=== PATIENT | female | born 1970 | race Caucasian/White ===

== ENCOUNTER 2022-10-11 15:48 | Emergency (ER) | payer OTHER, SELFPAY ==
[2022-10-11 15:50] VITALS: BP 120/78; PULSE 61; RESP 20; TEMP 36.4; O2SAT 100
[2022-10-11 16:15] LABS: Basophils Percent Auto 0.1 % (0.2-1.2); Eosinophils Absolute Auto 0.1 K/mm3 (0-0.3); Eosinophils Percent Auto 1.2 % (0-4.4); Hematocrit 44.2 % (37.0-47.0); Immature Granulocyte Absolute 0.01 K/mm3 (0.00-0.031); Immature Granulocyte Percent A 0.1 % (0-0.5); Lymphocytes Absolute Auto 2.19 K/mm3 (0.9-3.2); Mean Corpuscular HGB Conc 31.7 g/dl (32-36); Mean Corpuscular Hemoglobin 28.3 pg (26-34); Mean Corpuscular Volume 89.5 fl (80-100); Monocytes Absolute Auto 0.7 K/mm3 (0.1-0.6); Neutrophils Absolute Auto 4.8 K/mm3 (1.3-6.7); Neutrophils Percent Auto 61.6 % (45.5-73.1); Platelet Count Result 327 k/mm3 (150-375); Red Blood Count 4.94 M/mm3 (4.2-5.4); White Blood Count 7.8 K/mm3 (4.5-10.0)
[2022-10-11 16:26] LABS: Alanine Aminotransferase 34 U/L (6-35); Albumin Level 4.2 g/dL (3.5-5.1); Alkaline Phosphatase 74 U/L (38-126); Anion Gap 3 mmol/L (8-16); Aspartate Amino Transferase 44 U/L (14-36); Bilirubin,Total 0.6 mg/dL (0.2-1.3); Blood Urea Nitrogen 14 mg/dL (7-17); Calcium 8.9 mg/dL (8.4-10.2); Carbon Dioxide 31 mmol/L (22-30); Chloride 101 mmol/L (98-107); Estimated CRCL calculation 61 ml/min; Estimated Glomerular Filt Rate > 60; Glucose 106 mg/dL (65-110); Lipase 54 U/L (23-300); Potassium 3.4 mmol/L (3.4-5.0); Sodium 135 mmol/L (137-145)
[2022-10-11 16:26] LABS: Appearance Urine Clear (Clear); Bacteria Urine None Seen /hpf; Bilirubin Urine Negative (Negative); Color Urine Yellow (Yellow); Glucose Urine UA Negative (Negative); Ketones Urine Negative (Negative); Leukocyte Esterase Ur Trace LEU/UL (Negative); Nitrate Urine Negative (Negative); Non Pathogenic Casts 0-2; Protein Urine Negative (Negative); RBC Urine 0-2 /hpf (0-2); Specific Grav Ur 1.018 (1.001-1.035); Squamous Epithelial Cell Urine None seen /hpf (Few); WBC Urine 0-5 /hpf
[2022-10-11 16:30] LABS: Add Urine Microscopic? YES
--- NOTE | 2022-10-11 17:35 | ED.GENADULT ---
HPI - General Adult General Chief complaint: Nausea/Vomiting/Diarrhea Stated complaint: nausea Time Seen by Provider: 10/11/22 16:58 Source: patient Mode of arrival: ambulatory Limitations: no limitations History of Present Illness HPI narrative: This is a 52-year-old female who presents to the ED with chief complaint of nausea, vomiting, diarrhea for the past 10 days. Patient states she was diagnosed with COVID 7 days ago. Patient states that she still has a little bit of a cough but it is better than a week ago. Reports her symptoms of runny nose and congestion are improving. She is here today because she has continued nausea and vomiting whenever she tries to eat. Reports episodes of loose stools as well. Denies abdominal pain. Denies fevers, chills, productive cough, chest pain, shortness of breath. Denies any GI bleeding symptoms. Related Data Allergies Allergy/AdvReac Type Severity Reaction Status Date / Time codeine Allergy Itching Verified 10/11/22 16:04 Review of Systems Review of Systems: All systems as dictated in HPI Exam Narrative: GENERAL: Well-appearing, well-nourished, and in no acute distress. Sitting up in bed. HEAD: Normocephalic, atraumatic. EYES: PERRLA and EOMI. ENT: Nares clear, no rhinorrhea or epistaxis. Mucous membranes moist. Oropharynx without tonsillar hypertrophy exudate or other lesions. NECK: Supple. No adenopathy or masses. CHEST: No respiratory distress. Clear to auscultation. No wheezes rales or rhonchi HEART: Regular rate and rhythm. No murmur heard. Normal peripheral pulses. ABDOMEN: Soft, nontender, nondistended, normal active bowel sounds. MSK: Normal range of motion. No edema. SKIN: Warm, dry, no rash. NEURO: Alert and oriented x3. No focal deficits. PSYCH: Normal mood and affect. Course Vital Signs Vital signs: Vital Signs Temperature 97.5 F L 10/11/22 15:50 Pulse Rate 61 10/11/22 15:50 Respiratory Rate 20 10/11/22 15:50 Blood Pressure 120/78 10/11/22 15:50 Pulse Oximetry 100 10/11/22 15:50 Oxygen Delivery Room Air 10/11/22 15:50 Temperature 97.5 F L 10/11/22 15:50 Pulse Rate 61 10/11/22 15:50 Respiratory Rate 20 10/11/22 15:50 Blood Pressure 120/78 10/11/22 15:50 Pulse Oximetry 100 10/11/22 15:50 Oxygen Delivery Room Air 10/11/22 15:50 Medical Decision Making MDM Narrative Medical decision making narrative: This is a 52-year-old female who presents to the ED with chief complaint of N/V/D with recent COVID diagnosis. Vitals are normal today. Exam is benign. No focal abdominal pain or tenderness. Lab work is grossly unremarkable. UA negative. Symptoms consistent with viral syndrome. She is stable for discharge. She is having trouble with the Zofran at home so I gave her prescription for Reglan. Encouraged her to follow-up with PCP. We discussed that the symptoms should continue to improve over the next week. Return precautions were given and supportive measures were discussed. She is understanding and agreeable with plan for discharge and follow-up. Vital Signs Vital Signs: Vital Signs Temperature 97.5 F L 10/11/22 15:50 Pulse Rate 61 10/11/22 15:50 Respiratory Rate 20 10/11/22 15:50 Blood Pressure 120/78 10/11/22 15:50 Pulse Oximetry 100 10/11/22 15:50 Oxygen Delivery Room Air 10/11/22 15:50 Temperature 97.5 F L 10/11/22 15:50 Pulse Rate 61 10/11/22 15:50 Respiratory Rate 20 10/11/22 15:50 Blood Pressure 120/78 10/11/22 15:50 Pulse Oximetry 100 10/11/22 15:50 Oxygen Delivery Room Air 10/11/22 15:50 Lab Data 10/11/22 16:09 10/11/22 16:09 Labs: Lab Results 10/11/22 10/11/22 Range/Units 16:09 16:13 WBC 7.8 (4.5-10.0) K/mm3 RBC 4.94 (4.2-5.4) M/mm3 Hgb 14.0 (12.0-15.0) g/dL Hct 44.2 (37.0-47.0) % MCV 89.5 (80-100) fl MCH 28.3 (26-34) pg MCHC 31.7 L (32-36) g/dl RDW 13.0 (11.5-1
== END 2022-10-11 17:53 | disposition home or self-care (01) ==
PROVIDERS: Emergency Medicine; Emergency Provider Physician Assistant; PCP Family Medicine
DX: U07.1 COVID-19 (principal); K52.9 Noninfective gastroenteritis and colitis, unspecified
CPT/HCPCS: 36415; 80053; 81001; 81025; 83690; 85025; 99283